=== PATIENT | female | born 1955 | race Hispanic/Latino ===

== ENCOUNTER 2022-02-27 21:15 | Emergency (ER) | payer OTHER ==
[~2022-02-27] VITALS: Ht 149.9 cm; Wt 44.0 kg
[~2022-02-27 21:15] MED LIST: ATIVAN1 MG PO
[2022-02-27] MEDS ORDERED: IRON325 M1 PO (21:46)
[2022-02-28] MEDS ORDERED: CEFDINIR300 MG PO ×2 (04:04→04:24)
== END 2022-02-28 04:39 | disposition home or self-care (01) ==
LOC: ED 21:15
DX: N39.0 Urinary tract infection, site not specified (principal); D64.9 Anemia, unspecified; Z85.42 Personal history of malignant neoplasm of other parts of uterus; Z91.041 Radiographic dye allergy status; Z79.899 Other long term (current) drug therapy; Z20.822 Contact with and (suspected) exposure to COVID-19
CPT/HCPCS: 36415; 74176; 80053; 81001; 83605; 85025; 86850; 86900; 86901; 86922; 87502; 99284-25; P9016; U0003